=== PATIENT | male | born 1955 | race African-American/Black ===

== ENCOUNTER 2020-01-11 13:49 | Emergency (ER) | payer MEDICAID ==
[~2020-01-11] VITALS: Ht 182.9 cm; Wt 79.0 kg
[2020-01-11 13:53] VITALS: BP 136/71
[2020-01-11] MEDS ORDERED: AMOXICILLIN/POTASSIUM CLAVULANATE 875/125MG TAB PO ONE (14:15)
[2020-01-11] MEDS ORDERED: METRONIDAZOLE 500MG TABLET PO ONE (14:30)
[2020-01-11] MEDS ORDERED: LIDOCAINE HCL 1% 20ML VIAL (Pyxis) INJ INFIL NR (15:45)
[2020-01-11] MEDS ORDERED: CEFTRIAXONE SODIUM 1 G/VIAL IM NR (15:45)
[2020-01-11] MEDS ORDERED: BACITRACIN ZINC OINT UDPKT TOP NR (15:45)
[2020-02-12] MEDS ORDERED: GABA100C MT (19:18)
== END 2020-01-11 16:20 | disposition home or self-care (01) ==
LOC: ER 13:49
DX: S63.91XA Sprain of unspecified part of right wrist and hand, initial encounter (principal); Y08.89XA Assault by other specified means, initial encounter; W01.0XXA Fall on same level from slipping, tripping and stumbling without subsequent striking against object, initial encounter; Y93.89 Activity, other specified; Y92.9 Unspecified place or not applicable; L03.113 Cellulitis of right upper limb
CPT/HCPCS: 73110; 73130; 96372; 99284; J0696; J3490

== ENCOUNTER 2020-05-04 17:18 | Emergency (ER) | payer MEDICAID ==
[~2020-05-04] VITALS: Ht 180.3 cm; Wt 88.0 kg
[~2020-05-04 17:18] MED LIST: GABA100C MT
[2020-05-04] MEDS ORDERED: ACETAMINOPHEN 325MG TABLET PO ONE (18:45)
[2020-05-04] MEDS ORDERED: CEPHALEXIN 250MG CAPSULE PO ONE (19:00)
[2020-05-04 19:38] VITALS: BP 141/78
== END 2020-05-04 20:03 | disposition home or self-care (01) ==
LOC: ER 17:18
DX: R10.32 Left lower quadrant pain (principal); L02.214 Cutaneous abscess of groin
CPT/HCPCS: 99283